=== PATIENT | female | born 1990 | race Caucasian/White ===

== ENCOUNTER 2025-03-24 02:29 | Emergency (ER) | payer BC ==
[~2025-03-24] VITALS: Ht 165.1 cm; Wt 63.6 kg
[2025-03-24 02:32] VITALS: TEMP 97.5
[2025-03-24 03:05] LABS: PLATELET COUNT (AUTO) 223 K/uL (150-450); RED BLOOD CELL COUNT(AUTO) 4.36 MIL/uL (4.00-5.20); RED CELL DISTRIBUTION WIDTH 13.2 % (11.5-14.5); WHITE BLOOD COUNT (AUTO) 12.9 K/uL (4.5-11.0)
[2025-03-24] MEDS: ONDANSETRON HCL 4 MG/2 ML VIAL IVP ONE ×2 (03:06→04:11)
[2025-03-24 03:10] LABS: CALCIUM, TOTAL 8.8 mg/dL (8.8-10.5); CREATININE 0.95 mg/dL (0.60-1.30); GLOMERULAR FILTR. RATE CALC > 60 mL/min (>60); GLUCOSE,RANDOM 151 mg/dL (70-110); SODIUM SERUM 133 mmol/L (136-145); UREA NITROGEN, BLOOD 15 mg/dL (7-18)
[2025-03-24] MEDS: KETOROLAC TROMETHAMINE 30 MG/ML VIAL IVP ONE (03:28)
[2025-03-24 03:29] LABS: ASPARTATE AMINOTRANSFERASE 22.0 U/L (15-37); HCG,QUANTITATIVE 6.0 mIU/mL (0-6); TOTAL PROTEIN, SERUM 6.2 g/dL (6.4-8.2)
[2025-03-24] MEDS ORDERED: IOHEXOL 350 MG/ML 100 ML VIAL ONE (04:48)
[2025-03-24] MEDS ORDERED: SODIUM CHLORIDE 0.9% 100 ML ONE (04:48)
[2025-03-24 05:00] VITALS: BP 129/95; PULSE 68; RESP 18; O2SAT 97
[2025-03-24] MEDS ORDERED: HYDR-4062 PO (05:49)
[2025-03-24] MEDS ORDERED: ONDA-104 PO (05:49)
== END 2025-03-24 06:27 | disposition home or self-care (01) ==
LOC: EMS 02:29
DX: R10.31 Right lower quadrant pain (principal)
CPT/HCPCS: 99285; 74177; 96374; 76856; 96375; 71045; 80048; 80076; 83690; 84702; 85025; 85610; 85730; 86850; 86900; 86901; 93005; 96376; J1885; Q9967; J1171; J2405; J7050; 36415-L1; 36415-TC